=== PATIENT | male | born 1970 | race Two or more races ===

== ENCOUNTER → 2019-02-17 | Outpatient (CLI) | payer BC ==
--- NOTE | 2019-02-17 09:50 | CARD ---
MR#: [id number] Date of Study: 02/17/2019 Ordering Physician: KRYSTIAN BISHOP, Referring Physician: KRYSTIAN BISHOP Tech: Trinidad Gordon RDCS APPROVED REPORT EXAM: Two-dimensional and M-mode echocardiogram with Doppler and color Doppler. Other Information Quality : Good INDICATION Hypertension/HCVD Murmur 2D DIMENSIONS RVDd2.8 (2.9-3.5cm)Left Atrium(2D)3.0 (1.6-4.0cm) IVSd1.1 (0.7-1.1cm)Aortic Root(2D)3.1 (2.0-3.7cm) LVDd5.3 (3.9-5.9cm)LVOT Diameter2.2 (1.8-2.4cm) PWd1.1 (0.7-1.1cm)LVDs3.2 (2.5-4.0cm) FS (%) 39.0 %SV93.9 ml LVEF(%)60.0 (>50%) Aortic Valve AoV Peak [place].203.4cm/sAoV VTI44.5cm AO Peak GR.16.5mmHgLVOT Peak [place].114.5cm/s LVOT VTI 23.88cmAO Mean GR.9mmHg CELY (VMAX)2.21wo2RQW (VTI)2.05cm2 AI P 1/2 Idcx520vq Mitral Valve MV E Tjshbpat29.0cm/sMV DECEL [id number] MV A Nnqqjzdh79.8cm/sE/A Ratio1.1 Pulmonary Vein S1 Mxtkeymx50.1cm/sD2 Gcloqpme10.7cm/s LEFT VENTRICLE The left ventricle is normal size. There is normal left ventricular wall thickness. The left ventricu lar systolic function is normal. The Ejection Fraction is 55-60%. There is normal LV segmental wall m otion. RIGHT VENTRICLE The right ventricle is normal size. The right ventricular systolic function is normal. ATRIA The left atrium size is normal. The right atrium size is normal. The interatrial septum is intact wit h no evidence for an atrial septal defect or patent foramen ovale as noted on 2-D or Doppler imaging. AORTIC VALVE The aortic valve is calcified but opens well. Doppler and Color Flow revealed mild aortic regurgitati on. There is no significant aortic valvular stenosis. MITRAL VALVE The mitral valve is normal in structure and function. There is no evidence of mitral valve prolapse. There is no mitral valve stenosis. Doppler and Color Flow revealed no mitral valve regurgitation note d. TRICUSPID VALVE The tricuspid valve is normal in structure and function. Doppler and Color Flow revealed no tricuspid valve regurgitation noted. There is no tricuspid valve stenosis. PULMONIC VALVE The pulmonary valve is normal in structure and function. Doppler and Color Flow revealed minimal pulm onic valvular regurgitation. There is no pulmonic valvular stenosis. GREAT VESSELS The aortic root is normal in size. The ascending aorta is normal in size. The IVC is normal in size a nd collapses >50% with inspiration. PERICARDIAL EFFUSION There is no evidence of significant pericardial effusion. Critical Notification Critical Value: No <Conclusion> The left ventricular systolic function is normal. The Ejection Fraction is 55-60%. There is normal LV segmental wall motion. Doppler and Color Flow revealed mild aortic regurgitation. There is no evidence of significant pericardial effusion. Signed by : Tanner Vasquez, Electronically Approved : 02/17/2019 09:49:52
== END | disposition home or self-care (01) ==
LOC: ECHO 08:47
PROVIDERS: ATTEND Family Medicine
DX: I08.8 Other rheumatic multiple valve diseases (principal); I10 Essential (primary) hypertension
CPT/HCPCS: 93306

== ENCOUNTER → 2020-02-11 | Outpatient (CLI) | payer BC ==
--- NOTE | 2020-02-11 08:52 | RAD ---
EXAM: Chest and right ribs, 4 views. HISTORY: Pain. COMPARISON: None. FINDINGS: A frontal view the chest and 3 views of the right ribs are obtained. There is no infiltrate, there is a mildly displaced fractures of the lateral right ninth and eighth ribs. IMPRESSION: 1. Mildly displaced fractures of the lateral right eighth and ninth ribs. 2. No acute pulmonary finding. Electronically signed by: Ofe Arriaga MD (02/11/2020 8:49 AM) [id number]
== END | disposition home or self-care (01) ==
LOC: PMG 08:13
DX: S22.31XA Fracture of one rib, right side, initial encounter for closed fracture (principal); X58.XXXA Exposure to other specified factors, initial encounter; Y93.89 Activity, other specified; Y92.89 Other specified places as the place of occurrence of the external cause; Y99.8 Other external cause status
CPT/HCPCS: 71101